=== PATIENT | male | born 1995 | race African-American/Black ===

== ENCOUNTER 2021-08-26 18:02 | Emergency (ER) | payer OTHER ==
[~2021-08-26] VITALS: Ht 170.2 cm; Wt 84.7 kg
[2021-08-26] MEDS ORDERED: ADVITAB PO (18:08)
[2021-08-26] MEDS ORDERED: BENZOIN TINCTURE 60ML BTL TOP ONE (19:30)
[2021-08-26] MEDS ORDERED: IBUPROFEN 600MG TAB PO ONE (19:30)
[2021-08-26] MEDS ORDERED: CEPHALEXIN 500 MG CAP PO ONE (19:30)
[2021-08-26] MEDS ORDERED: CEPH500C PO (19:55)
[2021-08-26 20:01] VITALS: BP 145/68
== END 2021-08-26 20:15 | disposition home or self-care (01) ==
LOC: M ED 18:02
DX: S91.115A Laceration without foreign body of left lesser toe(s) without damage to nail, initial encounter (principal); S92.525A Nondisplaced fracture of middle phalanx of left lesser toe(s), initial encounter for closed fracture; W20.8XXA Other cause of strike by thrown, projected or falling object, initial encounter; Y92.39 Other specified sports and athletic area as the place of occurrence of the external cause; Y93.B3 Activity, free weights; Y99.9 Unspecified external cause status